=== PATIENT | female | born 1970 | race African-American/Black ===

== ENCOUNTER 2016-08-19 07:26 | Emergency (ER) | payer OTHER ==
[2016-08-19 07:52] LABS: URINE SOURCE CLEAN CATCH
[2016-08-19 08:03] LABS: BILIRUBIN URINE NEGATIVE (NEGATIVE); BLOOD URINE SMALL (NEGATIVE); COLOR ORANGE; GLUCOSE URINE NEGATIVE (NEGATIVE); LEUKOCYTES URINE LARGE (NEGATIVE); NITRITE URINE NEGATIVE (NEGATIVE); PH URINE 5.5; PROTEIN URINE 100 mg/dL (NEGATIVE); SP GRAVITY URINE 1.012; TURBIDITY URINE TURBID (CLEAR); UROBILINOGEN URINE NORMAL (NORMAL)
[2016-08-19 08:05] LABS: URINE MICRO REVIEW NEEDED? YES
[2016-08-19 08:10] LABS: UR EPITHELIAL CELLS <10 /HPF (<10); URINE BACTERIA 4+ /HPF; URINE CULTURE NEEDED? YES; URINE RBC <10 /HPF (<10); URINE WBC TNTC /HPF (<10)
[2016-08-19 08:44] LABS: URINE CASTS GRANULAR PRESENT
--- NOTE | 2016-08-19 09:47 | PROVIDER DOCUMENTATION ---
HPI-Female /OB/Breast - General Chief Complaint: UTI Symptoms Stated Complaint: POSS UIT OR ULCER ACTING UP Time Seen by Provider: 08/19/16 09:05 Source: reports: patient Allergies/Adverse Reactions: Patient Allergies Allergy/AdvReac Type Severity Reaction Status Date / Time No Known Allergies Allergy Verified 05/04/14 09:59 Home Medications: Home Medication List Medication Instructions Recorded Confirmed Last Taken Type Amlodipine [Norvasc] 10 mg PO DAILY 08/19/16 08/19/16 08/18/16 08:00 History Loperamide HCl [Imodium A-D] 2 mg PO Q4H PRN PRN #10 capsule 08/19/16 Unknown Rx Phenazopyridine HCl [Pyridium] 100 mg PO TID #6 tablet 08/19/16 Unknown Rx Simvastatin 40 mg PO DAILY 08/19/16 08/19/16 08/18/16 08:00 History Sulfamethoxazole/Trimethoprim 1 each PO BID #14 tablet 08/19/16 Unknown Rx [Bactrim Ds Tablet] - History of Present Illness-Female /OB Nature of Presenting Problem: 45 y/o BF c/o dysuria, frequency, urgency, suprapubic pain x 6 days. Pt states that she has bilat low back pain as well. Denies any hematuria or flank pain, N /V/C, fever/chills. States she has been increasing cranberry juice and green tea, but states has had diarrhea for 3 days, so she ceased. Diarrhea x 5 daily. No other sxs reported. Review of Systems - Adult - REVIEW OF SYSTEMS - ADULT Constitutional: reports: no symptoms reported. denies: chills, fever Eyes: reports: no symptoms reported. denies: blurred vision, double vision Ears, Nose, Mouth & Throat: reports: no symptoms reported. denies: ear pain, nose pain Cardiovascular: reports: no symptoms reported. denies: chest pain, palpitations Respiratory: reports: no symptoms reported. denies: dyspnea on exertion, shortness of breath Gastrointestinal: reports: see HPI, abdominal pain, diarrhea. denies: nausea, vomiting Genitourinary: reports: see HPI, dysuria, frequency, urgency. denies: flank pain, hematuria, incontinence Musculoskeletal: reports: see HPI, back pain. denies: joint pain, joint swelling Integumentary: reports: no symptoms reported. denies: nail changes, rash Neurological: reports: no symptoms reported. denies: numbness, paresthesia Psychiatric: reports: no symptoms reported Endocrine: reports: no symptoms reported. denies: cold intolerance, heat intolerance Hematologic/Lymphatic: reports: no symptoms reported. denies: easy bruising, prolonged bleeding Allergic/Immunologic: reports: no symptoms reported All Other Systems: Reviewed and Negative Past History - Adult - PAST MEDICAL HISTORY-ADULT Review of Records: reports: Nursing Assessment Review, Medications Reviewed Major Childhood Illnesses: reports: denies history Cardiovascular: reports: HTN Respiratory: reports: denies history Gastrointestinal: reports: denies history Obstetrical/Gynecological: reports: denies history Genitourinary: reports: denies history Musculoskeletal: reports: denies history Neurological: reports: denies history Endocrine/Immune: reports: denies history Other Conditions: reports: denies history - PRIOR SURGERIES/PROCEDURES Surgical/Procedure History: reports: hysterectomy, gastric bypass - PRIOR HOSPITALIZATIONS Prior Hospitalizations: reports: none - IMMUNIZATION STATUS Childhood Immunizations: UTD Flu Vaccine: See Nurse Assessment - FAMILY HISTORY Family History: reviewed, not pertinent - SOCIAL HISTORY Smoking: denies Physical Exam-General - PHYSICAL EXAM-ADULT Initial Vital Signs Reviewed: Yes - CONSTITUTIONAL General Appearance: alert, mild distress - EYES Eyes: pink conjunctivae - HEAD, EARS, NOSE, MOUTH & THROAT HENMT: normocephalic/atraumatic, moist mucous membranes - NECK Neck: normal inspection - RESPIRATORY Respiratory: lungs clear, normal breath sounds. negative: crackles, rales, rhonchi, stridor, wheezing - CARDIOVASCULAR Cardiovascular: regular rate, rhythm. negative: bradycardia, tachycardia - GASTROINTESTINAL (ABDOMEN) Abdominal Exam: normal bowel sounds, soft, tenderness (mild, suprapubic). negative: distended, guarding, rigid, rebound, McBurney's point tenderness, Rubio's sign - MUSCULOSKELETAL Back Exam: no CVA tenderness, other (mild TTP bilat low back) Extremity: normal gait, normal inspection. negative: abnormal NV exam - SKIN Integumentary: normal color, normal turgor, warm/dry - NEUROLOGIC Neurologic: negative: aphasia - PSYCHIATRIC Psych/Mental Status: normal mood/affect, normal thought content, normal thought process, oriented x 3 Progress - PLAN OF CARE/RESULTS Progress/Plan/Lab Results: Laboratory Tests 08/19/16 07:35 Urine Source CLEAN CATCH Urine Color ORANGE Urine Turbidity TURBID Urine pH 5.5 Ur Specific [place] 1.012 Urine Protein 100 A Ur Glucose (Stick) NEGATIVE Ur Ketones (Stick) NEGATIVE Urine Blood SMALL A Urine Nitrite NEGATIVE Urine Bilirubin NEGATIVE Urobilinogen Dipstick NORMAL Urine Leukocytes LARGE A Urine WBC (Auto) TNTC A Urine RBC (Auto) <10 U Epithel Cells (Auto) <10 Urine Bacteria (Auto) 4+ Urine Crystals Not Reportable Small Round Cells Not Reportable Urine Casts GRANULAR PRESENT Urine Yeast-like Cells NONE SEEN Orders Category Date Time Status UA NIMS W/REFLEX CULT [URINALYSIS] Stat Lab 08/19/16 07:35 Completed URINE CULTURE [RM] Routine Lab 08/19/16 08:50 Received URINE MANUAL MICROSCOPIC [URINALYSIS] Stat Lab 08/19/16 07:35 Completed Vital Signs Temp Pulse Resp BP Pulse Ox 08/19/16 07:31 98.1 F 103 H 16 139/92 100 No Known Allergies Allergy (Verified 05/04/14 09:59) Amlodipine [Norvasc] 10 mg PO DAILY 08/19/16 Loperamide HCl [Imodium A-D] 2 mg PO Q4H PRN PRN #10 capsule 08/19/16 Phenazopyridine HCl [Pyridium] 100 mg PO TID #6 tablet 08/19/16 Simvastatin 40 mg PO DAILY 08/19/16 Sulfamethoxazole/Trimethoprim [Bactrim Ds Tablet] 1 each PO BID #14 tablet 08/19 I&O 08/18/16 08/19/16 08/20/16 06:59 06:59 06:59 Output Total 30 Balance -30 Laboratory 08/19/16 07:35 Urine Source CLEAN CATCH Urine Color ORANGE Urine Turbidity TURBID Urine pH 5.5 Ur Specific [place] 1.012 Urine Protein 100 A Ur Glucose (Stick) NEGATIVE Ur Ketones (Stick) NEGATIVE Urine Blood SMALL A Urine Nitrite NEGATIVE Urine Bilirubin NEGATIVE Urobilinogen Dipstick NORMAL Urine Leukocytes LARGE A Urine WBC (Auto) TNTC A Urine RBC (Auto) <10 U Epithel Cells (Auto) <10 Urine Bacteria (Auto) 4+ Urine Crystals Not Reportable Small Round Cells Not Reportable Urine Casts GRANULAR PRESENT Urine Yeast-like Cells NONE SEEN Discussed medication use and return precautions with pt. Departure - Departure Time of Disposition Order: 09:45 DIAGNOSIS: UTI (urinary tract infection) Qualifiers: Urinary tract infection type: acute cystitis Hematuria presence: without hematuria Qualified Code(s): N30.00 - Acute cystitis without hematuria Diarrhea Qualifiers: Diarrhea type: unspecified type Qualified Code(s): R19.7 - Diarrhea, unspecified Disposition: HOME 01 Certified Medical Emergency: Emergent Condition: Stable Additional Instructions: Take medications as directed. Drink plenty of fluids. Follow up with PCP or return to the ED if symptoms persist. Take Imodium only if diarrhea worsens. ED Follow Up Instructions: You have been treated by a care provider in the Emergency Department. These instructions are being provided to you so you can have an understanding of how to care for yourself upon discharge. Upon discharge from the Emergency Department, you are responsible for making arrangements for follow-up care by a physician of your choice. Take all prescribed medications as directed. Return to the Emergency Department immediately for any new or worsening symptoms. You may call the Physician Referral phone number at [phone] to obtain a list of Physicians who are taking new patients. Prescriptions: Sulfamethoxazole/Trimethoprim [Bactrim Ds Tablet] 1 each PO BID #14 tablet Loperamide HCl [Imodium A-D] 2 mg PO Q4H PRN PRN #10 capsule PRN Reason: Diarrhea Phenazopyridine HCl [Pyridium] 100 mg PO TID #6 tablet Referrals: Boston Matta MD [Primary Care Provider] - Forms: Return to School/Parent Work Instructions: Urinary Tract Infection, [id number], Diarrhea, [id number] Attestation - Physician/ ROGER Attestation Patient care was provided by Advanced Practice Provider:: Yes Advanced Practice Provider:: Celina Bhat Advanced Practice Provider documentation review:: The Mid-level provider documentation, treatment plan and medical decision making was reviewed by the physician who agrees with all treatment and medical decision making by the P.
[2016-08-19 09:58] VITALS: BP 138/90
== END 2016-08-19 09:58 | disposition home or self-care (01) ==
LOC: ED 07:26
DX: N30.00 Acute cystitis without hematuria (principal); R19.7 Diarrhea, unspecified; R30.0 Dysuria; R35.0 Frequency of micturition; R39.15 Urgency of urination; R10.30 Lower abdominal pain, unspecified; M54.5 Low back pain; I10 Essential (primary) hypertension; Z98.84 Bariatric surgery status; Z79.899 Other long term (current) drug therapy
CPT/HCPCS: 81001; 87077; 87088

== ENCOUNTER 2019-06-27 06:20 | Inpatient (IN) ==
[2019-06-27] MEDS ORDERED: NS 1,000 ML IV ONE (06:44)
[2019-06-27 07:27] LABS: BASO# 0.01 X1000 (0.0-0.2); BASO% 0.1 % (0.0-0.8); EOS# 0.08 X1000 (0.0-0.7); EOS% 0.8 % (0.0-10.0); HEMATOCRIT 27.3 % (37.0-47.0); HEMOGLOBIN 8.4 g/dL (12.0-16.0); IMM GRAN# 0.02 X1000 (0.0-0.04); IMM GRAN% 0.2 % (0.0-0.5); LYMPH# 1.11 X1000 (1.2-3.4); LYMPH% 11.6 % (20.5-51.1); MCH 25.1 PG (27-31); MCHC 30.8 g/dL (33-37); MCV 81.5 FL (81-99); MONO# 0.61 X1000 (0.11-0.59); MONO% 6.4 % (1.7-9.3); MPV 11.9 FL (7.4-10.4); NEUT# 7.72 X1000 (1.4-6.5); NEUT% 80.9 % (42.2-75.2); PLT 286 X1000 (130-400); RBC 3.35 XMIL (4.2-5.4); RDW 14.9 % (11.5-14.5); WBC 9.55 X1000 (4.8-10.8)
--- NOTE | 2019-06-27 07:29 | PROVIDER DOCUMENTATION ---
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 prir GI bleeding 4 yr ago. Txed for HTN and lipids. past gastric bypass was succcessful in wt- loss.NKDA Review of Systems - Adult - REVIEW OF SYSTEMS - ADULT Constitutional: reports: no symptoms reported. denies: chills Eyes: reports: no symptoms reported Ears, Nose, Mouth & Throat: reports: no symptoms reported Cardiovascular: reports: no symptoms reported Respiratory: reports: no symptoms reported Gastrointestinal: reports: no symptoms reported Genitourinary: reports: no symptoms reported Musculoskeletal: reports: no symptoms reported Integumentary: reports: no symptoms reported Neurological: reports: no symptoms reported Psychiatric: reports: no symptoms reported Endocrine: reports: no symptoms reported Hematologic/Lymphatic: reports: no symptoms reported Allergic/Immunologic: reports: no symptoms reported All Other Systems: Reviewed and Negative Past History - Adult - PAST MEDICAL HISTORY-ADULT Review of Records: reports: Nursing Assessment Review, Medications Reviewed, Social history reviewed & non-contributory. Major Childhood Illnesses: reports: denies history Cardiovascular: reports: HTN, hyperlipidemia Respiratory: reports: denies history Gastrointestinal: reports: ulcer Obstetrical/Gynecological: reports: denies history Genitourinary: reports: denies history Musculoskeletal: reports: denies history Neurological: reports: denies history Endocrine/Immune: reports: denies history Other Conditions: reports: denies history - PRIOR SURGERIES/PROCEDURES Surgical/Procedure History: reports: hysterectomy, gastric bypass - PRIOR HOSPITALIZATIONS Prior Hospitalizations: reports: none - IMMUNIZATION STATUS Childhood Immunizations: UTD Flu Vaccine: See Nurse Assessment - FAMILY HISTORY Family History: reviewed, not pertinent Physical Exam-General - PHYSICAL EXAM-ADULT Initial Vital Signs Reviewed: Yes (BP LOSW) - CONSTITUTIONAL General Appearance: appears well, alert, no apparent distress - EYES Eyes: PERRL/EOMI - HEAD, EARS, NOSE, MOUTH & THROAT HENMT: normocephalic/atraumatic, moist mucous membranes - NECK Neck: supple - CARDIOVASCULAR Cardiovascular: regular rate, rhythm, no murmur. 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, grossly normal, no motor/sensory deficits - PSYCHIATRIC Psych/Mental Status: normal mood/affect, normal thought content, normal thought process, oriented x 3 Progress - PLAN OF CARE/RESULTS Progress/Plan/Lab Results: Vital Signs - 8 hr 06/27/19 06:31 06/27/19 07:14 06/27/19 07:20 Temperature 97.6 F Pulse Rate 74 73 Pulse Rate [Sitting] 81 Pulse Rate [Standing] 85 Pulse Rate [Supine] 67 Respiratory Rate 18 14 Blood Pressure 97/68 116/83 Blood Pressure [Sitting] 108/73 Blood Pressure [Standing] 102/65 Blood Pressure [Supine] 104/61 O2 Sat by Pulse Oximetry 100 98 Orders Category Date Time Status Cardiac Monitoring DIRECTED Care 06/27/19 06:45 Active Orthostatic Vital Signs NOW Care 06/27/19 06:44 Active Saline Loc NOW Care 06/27/19 06:44 Active CBC WITH ELECTRONIC DIFF [HEME] Stat Lab 06/27/19 06:55 Results CMP [COMPREHENSIVE METABOLIC PANEL] [CHEM] Stat Lab 06/27/19 06:55 Received OCCULT BLOOD SCREEN STOOL PL Stat Lab 06/27/19 07:14 Ordered TYPE & SCREEN [BBK] Stat Lab 06/27/19 06:55 Received URINALYSIS W/POSS RFLX CULT [URINALYSIS] Stat Lab 06/27/19 06:46 Ordered 0.9% Sodium Chloride Inj [Ns] 1,000 ml Med 06/27/19 06:44 Active IV 999 mls/hr EKG [EKG] Stat Ther 06/27/19 06:46 Ordered Result Diagrams: 06/27/19 10:21 06/27/19 06:55 - REASSESSMENT Reassessment #1 Time Reassessed: 10:44 Status: unchanged (note mild reduction h/h at 0121 lab draw. HR 68/min 110/83) - EKG 1 Time of EKG reading by physician:: 06:45 EKG Read and Signed by:: Eber Duff EKG Interpretation (*Must complete 3 of following elements*): Abnormal (POSSIBLE LEFT ATRIAL ENLARGEMENT) Rate: 65 Rhythm: nsr QRS: normal GA Interval: normal - CONSULTS/PCP/HOSPITALIST Notification #1 *Consult/PCP/Hospitalist*: DR DONNELLY Time Discussed: 09:26 Consult Disposition: Admit (ADMIT TO [facility], WILL CONSULT, START PROTONIC GTT NOW LIKELY ANASTOMOTIC BLEED WOULD BE ARTERIAL.) #2 Consult: DR HONG Time Discussed: 09:50 Consult Disposition: Admit Departure - Departure Date of Disposition Decision: 06/27/19 Time of Disposition Decision: 09:46 DIAGNOSIS: GI bleeding Qualifiers: GI bleed type/associated pathology: unspecified gastrointestinal hemorrhage type Qualified Code(s): K92.2 - Gastrointestinal hemorrhage, unspecified Disposition: ADMITTED INPATIENT 09 Certified Medical Emergency: Emergent Condition: Fair Referrals and Follow-Ups: Boston Matta MD [Primary Care Provider] - - Critical Care Note This patient required my direct & personal management of CC.: No Attestation - Physician/ ROGER Attestation The physician spent face to face time with patient:: Yes Advanced Practice Provider documentation review:: Supervising physician onsite and consulted in the evaluation and care of this patient. The physician did have a face to face encounter with the patient.
[2019-06-27 07:37] LABS: URINE SOURCE CLEAN CATCH
[2019-06-27 07:39] LABS: OCCULT BLOOD 1 POSITIVE (NEGATIVE)
[2019-06-27 07:48] LABS: BILIRUBIN URINE NEGATIVE (NEGATIVE); BLOOD URINE NEGATIVE (NEGATIVE); COLOR YELLOW; GLUCOSE URINE NEGATIVE (NEGATIVE); KETONE URINE NEGATIVE (NEGATIVE); LEUKOCYTES URINE SMALL (NEGATIVE); NITRITE URINE NEGATIVE (NEGATIVE); PH URINE 5.5; PROTEIN URINE 70 mg/dL (NEGATIVE); SP GRAVITY URINE 1.017; TURBIDITY URINE HAZY (CLEAR); UR EPITHELIAL CELLS >10 /HPF (<10); URINE BACTERIA 1+ /HPF; URINE RBC <10 /HPF (<10); UROBILINOGEN URINE NORMAL (NORMAL)
[2019-06-27 07:51] LABS: ALBUMIN 3.9 g/dL (3.5-5.0); CALCIUM 8.8 mg/dL (8.8-10.2); CREATININE 1.7 mg/dL (0.5-0.9); POTASSIUM 4.8 mmol/L (3.5-5.1); TOTAL BILIRUBIN 0.2 mg/dL (0.20-1.00); TOTAL PROTEIN 6.6 g/dL (6.3-8.3)
[2019-06-27] MEDS: PROTONIX 80 MG in NS 80 ML IV SCH ×2 (09:42→20:13)
--- NOTE | 2019-06-27 09:51 | EKG Report ---
Test Performed on : 06/27/2019 06:44:15 AM Test Reason : pain Blood Pressure : / mmHG Vent. Rate : 065 BPM Atrial Rate : 065 BPM P-R Int : 154 ms QRS Dur : 080 ms QT Int : 426 ms P-R-T Axes : 040 014 062 degrees QTc Int : 443 ms Normal sinus rhythm. Possible Left atrial enlargement Borderline ECG No previous ECGs available Unconfirmed Result
[2019-06-27 10:36] LABS: HEMATOCRIT 26.8 % (37.0-47.0); HEMOGLOBIN 8.2 g/dL (12.0-16.0)
[2019-06-27] MEDS ORDERED: ROCEPHIN 1 GM in NS 50 ML IV ONE (10:43)
[2019-06-27] MEDS ORDERED: ZOFRAN IV PRN (13:15)
[2019-06-27] MEDS ORDERED: PROTONIX 80 MG in NS 80 ML IV SCH (13:30)
[2019-06-27 13:53] LABS: HEMATOCRIT 26.4 % (37.0-47.0)
--- NOTE | 2019-06-27 14:04 | Diag Imaging Result Doc PS360 ---
EXAM: CT HEAD W/O CONTRAST HISTORY: syncopal episode TECHNIQUE: CT head without intravenous contrast COMPARISON: None. FINDINGS: No parenchymal hemorrhage. No epidural or subdural hematoma. No subarachnoid hemorrhage. No mass identified on this noncontrasted exam. No hydrocephalus. No sinus opacification. IMPRESSION: No hemorrhage. Negative brain CT without contrast. This exam was performed using automated exposure control, adjustment of mA or kV according to patient size, and/or use of iterative reconstruction technique. Electronically signed by Evangelist Dennison 06/27/2019 2:02 PM
--- NOTE | 2019-06-27 14:50 | HISTORY AND PHYSICAL ---
PRIMARY CARE PHYSICIAN: Dr. Boston Matta. CHIEF COMPLAINT: Syncopal episode. HISTORY OF PRESENT ILLNESS: Ms. Millan is a 48-year-old female with past medical history of hypertension, hyperlipidemia, hypothyroidism, GERD, chronic kidney disease, and gastric [place] [address] Kirby. The patient states that she has been having dark, tarry stools and weakness for the past 4 days. She states that she thought that was because she was changed from taking her Nexium to Pepcid last week by her claims adjuster crop, Dr. Bateman. She has been on Nexium for some time now, and they changed her to Pepcid once daily because of her chronic kidney disease, to see if this would help her kidney function. She stated that she has been off this for about a week now, and then after this, she started having some dark, tarry stools. The patient does report that she also is bad to eat spicy foods, and that she does drink excessive amounts of alcohol on the weekends. She did have a syncopal episode today at work. 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 She did hit her head on a metal piece. She was only out for less than a minute. She did wake up fully oriented. She did decide to come to the ER at that time. The patient does deny any excessive thirst, palpitations, chest pain, orthopnea, PND, cough, congestion, dyspnea, nausea, vomiting, dysuria, hematuria, muscle pain, or any other pertinent symptoms at this time. REVIEW OF SYSTEMS: A 10-point review of systems has been obtained, and all are negative, except for what is stated above in the HPI. PAST MEDICAL HISTORY: 1. Hypertension. 2. Hyperlipidemia. 3. Hypothyroidism. 4. GERD. 5. Chronic kidney disease. PAST SURGICAL HISTORY: 1. [place]astric [place] [address] Kirby. 2. Hysterectomy in 2009. 3. A recent hormone implant to the right buttocks. FAMILY HISTORY: Mom: Hypertension, hyperlipidemia, diabetes, and breast cancer. Dad: Hypertension, hyperlipidemia, and diabetes. 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 She denies any smoking. She does drink excessive amounts of alcohol every weekend. She denies any use of illicit drugs. She does state that she occasionally will take Xanax. However, she does not have a prescription for this medication. The patient denies any use of oxygen, CPAP, or BiPAP use. PHARMACY: The patient's pharmacy is [facility] on [address] in [place]. ALLERGIES: No known drug allergies. HOME MEDICATIONS: 1. Amlodipine 10 mg p.o. daily. 2. Atorvastatin 80 mg p.o. daily. 3. Pig thyroid 30 mg 1 tablet p.o. daily. 4. Pepcid AC 20 mg p.o. daily. PHYSICAL EXAMINATION: VITAL SIGNS: Temperature 97.6 degrees, pulse rate 86, respiratory rate 14, blood pressure 111/82, O2 saturation 100% on room air. GENERAL: This is a 48-year-old, female. She is well nourished and well developed. She is in no acute distress. HEENT: Atraumatic, normocephalic. Pupils equal, round, reactive to light. Mucous membranes are moist. NECK: Supple. No lymphadenopathy. Trachea is midline. No JVD. CV: Regular rate and rhythm. No murmurs, gallops, or rubs appreciated. RESPIRATORY: Lung sounds are clear with equal chest excursion. Respirations are nonlabored. No accessory muscle usage. GI: Abdomen is soft, nontender, nondistended. Bowel sounds present x4. : No CVA tenderness noted. The patient voids without difficulty. NEUROLOGIC: The patient is awake, alert, and oriented, able to follow all commands appropriately. No deficits noted. MUSCULOSKELETAL: Full distal strength noted. No abnormalities. No deformities. EXTREMITIES: No clubbing, no cyanosis, no edema. DP and PT pulses are present and palpable. SKIN: Warm, dry, intact. No rashes. No bruises. No diaphoresis. LABORATORY AND DIAGNOSTIC DATA: White blood cell count 9.55, initial hemoglobin 8.4, initial hematocrit 27.3, repeat hemoglobin 8.2, repeat hematocrit 26.8, repeat hemoglobin 8.0, repeat hematocrit 26.4, platelet count 286,000. Chemistry: Sodium 143, potassium 4.8, chloride 110, carbon dioxide 23, BUN 45, creatinine 1.7, estimated GFR 32, glucose 105. Head CT shows no hemorrhage. It shows no acute intracranial pathology. ASSESSMENT: 1. Gastrointestinal bleed. 2. Syncopal episode. 3. Gastroesophageal reflux disease. 4. Chronic kidney disease. 5. Hypertension. 6. Hyperlipidemia. 7. Hypothyroidism. PLAN: We will admit this patient to the medical floor. We are going to repeat hemoglobin and hematocrit every 6 hours. This patient is on a Protonix drip. We are going to continue this on the medical floor. We are going to keep this patient n.p.o. for now, and this Protonix drip will go for 24 hours. After 24 hours, we will start this patient on clear liquids. If the patient's hemoglobin does start to drop or if the patient does start to have any acute bleed, we will have to transfer this patient across town, and have GI see the patient. CT scan was negative. We will provide the patient with IV fluid hydration. We have restarted some of the patient's home medications. We will repeat all her labs in the morning. I have provided her with SCDs for DVT prophylaxis. She will have vital signs every 4 hours, monitor and storage bin tender, and strict intake and output. All other further treatment pending hospital course and laboratory data. Dictated by EBONY Correa for Jorge Hodgson MD cc: MD Botson Corral MD MTDD
[2019-06-27] MEDS: NS 1,000 ML IV SCH ×2 (15:45→23:49)
--- NOTE | 2019-06-27 19:48 | HISTORY AND PHYSICAL ---
ADDENDUM: Patient seen and examined by myself. Full note dictated and discussed with nurse practitioner. Patient presented to the hospital stating that 4 days ago she started having black tarry stools that actually improved a little bit but still present. Does have a history of bleeding 4 years ago at her anastomosis site from a previous gastric bypass. Denies any NSAIDs. She states she drinks frequently on the weekends. We are going to admit her to the hospital. Currently, her hemoglobin and hematocrit is low but stable at 8 and 26. Repeat has been the same. We are going to admit her to the hospital, check q.6 hemoglobins [address] her on a Protonix drip, and we will follow. cc: Jorge Hodgson MD
[2019-06-27 19:56] LABS: HEMATOCRIT 27.5 % (37.0-47.0); HEMOGLOBIN 8.7 g/dL (12.0-16.0)
[2019-06-28 02:05] LABS: HEMOGLOBIN 7.4 g/dL (12.0-16.0)
[2019-06-28] MEDS: PROTONIX 80 MG in NS 80 ML IV SCH (05:51)
[2019-06-28] MEDS: NS 1,000 ML IV SCH (06:11)
[2019-06-28] MEDS ORDERED: NS 1,000 ML IV SCH (06:29)
[2019-06-28 07:57] LABS: HEMATOCRIT 26.8 % (37.0-47.0); HEMOGLOBIN 8.1 g/dL (12.0-16.0); MCH 24.8 PG (27-31); MCHC 30.2 g/dL (33-37); MCV 82.2 FL (81-99); MPV 11.7 FL (7.4-10.4); RBC 3.26 XMIL (4.2-5.4); RDW 15.3 % (11.5-14.5); WBC 4.97 X1000 (4.8-10.8)
[2019-06-28 08:19] LABS: CALCIUM 8.6 mg/dL (8.8-10.2); CREATININE 1.5 mg/dL (0.5-0.9); POTASSIUM 4.5 mmol/L (3.5-5.1)
[2019-06-28] MEDS: NORVASC PO SCH (10:13)
[2019-06-28] MEDS: THYROID PO SCH (10:13)
[2019-06-28] MEDS: SODIUM CHLORIDE 0.9% INJ SCH (16:43)
[2019-06-28] MEDS: PROTONIX IV SCH (16:43)
[2019-06-29] MEDS: PROTONIX IV SCH (03:28)
[2019-06-29] MEDS: SODIUM CHLORIDE 0.9% INJ SCH (03:28)
[2019-06-29 06:03] LABS: ALBUMIN 3.2 g/dL (3.5-5.0); CALCIUM 8.5 mg/dL (8.8-10.2); CREATININE 1.5 mg/dL (0.5-0.9); MAGNESIUM 1.5 mg/dL (1.5-2.7); POTASSIUM 4.1 mmol/L (3.5-5.1); TOTAL BILIRUBIN 0.2 mg/dL (0.20-1.00); TOTAL PROTEIN 5.8 g/dL (6.3-8.3)
[2019-06-29 06:09] LABS: HEMATOCRIT 26.4 % (37.0-47.0); MCH 25.2 PG (27-31); MCHC 30.3 g/dL (33-37); RBC 3.18 XMIL (4.2-5.4); RDW 15.4 % (11.5-14.5); WBC 4.96 X1000 (4.8-10.8)
--- NOTE | 2019-06-29 07:51 | PROGRESS NOTE ---
DATE: 06/28/2019 SUBJECTIVE: Patient denies any further bleeding. Denies any hematochezia, hematemesis, melena. States her abdominal pain is improved. PHYSICAL EXAM: Temperature 97.9 degrees, pulse 59, respiratory rate 18, BP 105/64.General: Patient is pleasant. She is in no distress. HEENT: Normocephalic. Neck: Supple. Cardiovascular: Regular rate. Chest: Clear. Abdomen: Soft. Diffusely but minimally tender. Extremities: Moves all extremities. Neurologic: No changes. ASSESSMENT: 1. Upper GI bleed, appears to have resolved. We are going to continue Protonix drip for 24 hours and then change to Protonix IV b.i.d. We are going to advance her diet to clear liquids. Recheck her hemoglobin and hematocrit in the a.m. Hopefully if stable, she can discharge home and follow up outpatient with GI. 2. Hypertension stable. 3. Syncope resolved. 4. Hyperlipidemia. 5. Hypothyroidism. cc: Jorge Hodgson MD
[2019-06-29 07:54] VITALS: BP 113/75
[2019-06-29] MEDS: THYROID PO SCH (10:04)
[2019-06-29] MEDS: NORVASC PO SCH (10:04)
--- NOTE | 2019-06-30 11:02 | DISCHARGE SUMMARY ---
ADMISSION DATE: 06/27/2019 DISCHARGE DATE: 06/29/2019 ADMITTING DIAGNOSES: 1. Gastrointestinal bleed. 2. Syncopal episode. 3. Gastroesophageal reflux disease. 4. Chronic kidney disease. 5. Hypertension. 6. Hyperlipidemia. 7. Hypothyroidism. DISCHARGE DIAGNOSES: 1. Upper gastrointestinal bleed, resolved. 2. Hypertension. 3. Syncope, resolved. 4. Hyperlipidemia. 5. Hypothyroidism. PROCEDURES AND FINDINGS: Head CT done on 06/27/2019 showed no hemorrhage and negative brain CT. HOSPITAL COURSE: Ms. Millan is a 48-year-old female, who presented to the ER with complaints of a syncopal episode at work and dark tarry stools for the past 4 days. The patient states that she attributed the dark tarry stools to being taken off her Nexium and being placed on Pepcid by her activities attendant, Dr. Bateman. She was taken off this medicine and changed because of chronic kidney disease. They were actually trying to get her off her PPIs. The patient does have a past medical history of gastric bypass in 2005. Initial hemoglobin on admission was noted to be 8.4. The patient was admitted to the medical floor. She was placed on a Protonix drip. H and H's were obtained q. 6 hours. The patient was held n.p.o. Hemoglobin did drop to its lowest point of 7.4, but it did climb back up to today's being 8.0. The patient is now tolerating a diet. She has not had any more bowel movements that are dark and tarry. She has been discharged home today. She has not had any more weakness or syncopal episodes. DISCHARGE INSTRUCTIONS: The patient is to follow up with Dr. Marco Antonio Blackwell on July 04 at 0915 hours. She also needs to follow up with Dr. Boston Matta in 1 to 2 weeks or sooner if needed. DISCHARGE MEDICATIONS: 1. Atorvastatin 80 mg p.o. daily. 2. Lisinopril 10 mg p.o. daily. 3. Norvasc 10 mg p.o. daily. 4. Port thyroid 1 tablet p.o. daily. 5. Pepcid 40 mg p.o. at bedtime. 6. Prevacid 30 mg p.o. daily. DISCHARGE DIET: GI soft diet as tolerated. DISCHARGE DISPOSITION: Patient is to discharge home with self care. She is to follow up with Dr. Marco Antonio Blackwell on July 04 at 0915 hours. If she is unable to make this appointment, she is to please call the office to reschedule at [phone]. The patient is to follow up with her passenger car conductor, Dr. Boston Matta, in 1 to 2 weeks or sooner if needed. She is to please call the office and make an appointment. For any other questions or concerns, she is to notify her passenger car conductor, Sigrid Pereira. Dictated by EBONY Correa for Jorge Hodgson MD cc: MD Boston Corral MD Michael Kelso, MD
--- NOTE | 2019-06-30 20:47 | DISCHARGE SUMMARY ---
ADMISSION DATE: 06/27/2019 DISCHARGE DATE: 06/29/2019 ADDENDUM: Patient seen and examined by myself. Full note dictated and discussed with nurse practitioner. Patient presented to the hospital, noted to have an upper GI bleed. Her hemoglobin and hematocrit had dropped to 8 and 28, but remained stable over 3 days. She was placed on IV Protonix for 24 hours, kept n.p.o., and then advanced from clear liquids to a GI soft without any further bleeding. Did discuss with patient that she does need an EGD, but does not have to remain in the hospital for such. Discussed that she needs to avoid alcohol and all nonsteroidal anti- inflammatory medication containing products. Needs to eat low-fat, high-fiber meals over the next several days to a week until she can follow up with GI to have an EGD. Discussed that should she have any worsening melenic stools or any bright red blood in her stool or emesis, she needs to immediately return back to the hospital, and we will have to keep her in the hospital at that point until we can do an EGD. The patient states that she understands, but desires to go home instead of sitting in the hospital to have an EGD. cc: Jorge Hodgson MD
== END 2019-06-29 11:22 | disposition home or self-care (01) | DRG 379 ==
LOC: P.ED 06:20 → P.MEDSURG 13:53
PROVIDERS: ATTEND Family Medicine